=== PATIENT | male | born 1990 | race Caucasian/White ===

== ENCOUNTER 2021-10-11 13:35 | Emergency (ER) | payer BC ==
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
[2021-10-11] MEDS ORDERED: LIDOCAINE 1%-EPI 1:100000 20 ML MDV SUBQ STA (13:58)
--- NOTE | 2021-10-11 14:22 | CT Report ---
PROCEDURE: CERVICAL SPINE WO INDICATIONS: Neck trauma, midline tenderness TECHNIQUE: Noncontrast 3 mm thick sections acquired from the skull base to the T4 level. Sagittal and coronal r eformats were then constructed. For radiation dose reduction, the following was used: automated exp osure control, adjustment of mA and/or kV according to patient size. COMPARISON: None. FINDINGS: Image quality: Excellent. Bones: No fractures or dislocations. Visualized superior ribs are intact. Soft tissues: Prevertebral soft tissues are normal in thickness. No paravertebral hematomas. No ap ical pneumothoraces. IMPRESSION: No evidence acute cervical fracture or dislocation. Reviewed by: Ronaldo Voss MD on 10/11/2021 1:21 PM [facility] Approved by: Ronaldo Voss MD on 10/11/2021 1:21 PM [facility] Station ID: [id number]
--- NOTE | 2021-10-11 14:24 | CT Report ---
PROCEDURE: HEAD WO INDICATIONS: Head trauma, mod-severe TECHNIQUE: Noncontrast 4.5 mm thick angled axial sections acquired from the foramen magnum to the vertex. For r adiation dose reduction, the following was used: automated exposure control, adjustment of mA and/or kV according to patient size. COMPARISON: None. FINDINGS: Image quality: Excellent. CSF spaces: Basal cisterns are patent. No extra-axial fluid collections. Ventricles are normal in size and shape. Brain: No midline shift. No intracranial masses or hemorrhage. Wright-white matter interface is norm al. Skull and face: Calvarium and visualized facial bones are intact, without suspicious lesions. Skin l aceration, right forehead with associated superficial radiopaque foreign bodies. Sinuses: Visualized sinuses and mastoids are clear. IMPRESSION: 1. Skin laceration, right forehead, with associated superficial radiopaque debris. 2. No evidence of acute intracranial process. No evidence of significant intracranial sequelae of acu te trauma Reviewed by: Ronaldo Voss MD on 10/11/2021 1:23 PM [facility] Approved by: Ronaldo Voss MD on 10/11/2021 1:23 PM [facility] Station ID: [id number]
--- NOTE | 2021-10-11 14:44 | CT Report ---
PROCEDURE: MAXILLOFACIAL WO INDICATIONS: Facial trauma TECHNIQUE: Noncontrast 1.5 mm thick axial images acquired from the mandible through the frontal sinuses, with co demian and sagittal reformatting. For radiation dose reduction, the following was used: automated ex posure control, adjustment of mA and/or kV according to patient size. COMPARISON: None. FINDINGS: Image quality: Excellent. Bones and teeth: Orbital snyder are intact. Sinus snyder show no fracture or deformity. Nasal bones and septum are intact. Visualized portions of the mandible demonstrate no fractures or subluxation. Zygomatic arches are intact. Pterygoid plates are intact. Visualized portions of the skull base an d auditory canals are intact. Sinuses: Paranasal sinuses are aerated, without fluid levels, mucosal thickening, or mucoceles. Mas toid air cells are aerated. Soft tissues: No edema, masses, or fluid collections. No enlarged lymph nodes. There is a right for ehead skin laceration with open wound and some debris within it. There is also significant air inferi or to the right globe and extending posteriorly predominantly medial to the medial right extraocular muscle within the orbit. This is highly suggestive of a medial right orbital wall fracture with commu nication with the ethmoid air cells. No intraconal gas is identified. There are tiny flecks of gravel bilaterally under the eyelids lateral to the orbits seen on image 130/2. Vascular: Visualized vascular structures appear normal in the absence of contrast. Bony vascular fo ramina and canals are intact. IMPRESSION: 1. Right forehead open laceration with associated gravel debris. 2. Extensive gas inferior to the right globe and a thin line of air tracking medial to the medial rig ht extraocular muscle, indicating a medial right orbital wall fracture communicating with the right e thmoid air cells. 3. There is tiny particulate gravel present superficially lateral to both globes. 4. No other facial bone fracture. No mandibular fracture. Globes intact. Above discussed with FRANC BOYER at the time of dictation on 10/11/2021 at 1426 hours [place] sta ndard time. At that time, we discussed the particulate debris lateral to both globes. On clinical exa mination, it was confirmed that the bilateral densities lateral to the globes was, in fact particulat e debris. Reviewed by: Ronaldo Voss MD on 10/11/2021 1:43 PM [facility] Approved by: Ronaldo Voss MD on 10/11/2021 1:43 PM [facility] Station ID: [id number]
[2021-10-11] MEDS ORDERED: AMOX/CLAV 875 MG/125 MG TABLET PO STA (15:06)
--- NOTE | 2021-10-11 15:59 | CT Report ---
PROCEDURE: LOWER EXTREMITY WO - LT INDICATIONS: knee lac, eval open joint TECHNIQUE: Noncontrast 3-mm axial sections acquired through the knee, with coronal and sagittal reformats. For radiation dose reduction, the following was used: automated exposure control, adjustment of mA and/o r kV according to patient size. COMPARISON: None. FINDINGS: Image quality: Excellent. Bones: No fracture or dislocation identified. Soft tissues: There is an anterior soft tissue laceration anterior to the superior aspect of the pat bobbi with a small amount of subcutaneous gas present. No radiopaque foreign body. No knee joint effus ion. IMPRESSION: 1. No evidence of acute fracture or dislocation involving the knee. 2. Anterior laceration at the level of the superior aspect of the patella with a small amount of subc utaneous gas present. No radiopaque foreign body. Reviewed by: Ronaldo Voss MD on 10/11/2021 2:58 PM [facility] Approved by: Ronaldo Voss MD on 10/11/2021 2:58 PM [facility] Station ID: [id number]
[2021-10-11] MEDS ORDERED: HYDROcod/ACETAM 5/325 MG TABLET PO STA (16:01)
[2021-10-11 16:07] VITALS: BP 141/79
== END 2021-10-11 16:15 | disposition home or self-care (01) ==
LOC: ED 13:35
DX: S01.81XA Laceration without foreign body of other part of head, initial encounter (principal); S02.19XA Other fracture of base of skull, initial encounter for closed fracture; S81.012A Laceration without foreign body, left knee, initial encounter; S02.831A Fracture of medial orbital wall, right side, initial encounter for closed fracture; T15.11XA Foreign body in conjunctival sac, right eye, initial encounter; T15.12XA Foreign body in conjunctival sac, left eye, initial encounter; V28.0XXA Motorcycle driver injured in noncollision transport accident in nontraffic accident, initial encounter; Y93.I9 Activity, other involving external motion
CPT/HCPCS: 12002; 12053; 65205; 70450; 70486; 72125; 73700; 99282; 99284; A9270